=== PATIENT | female | born 1975 | race Hispanic/Latino ===

== ENCOUNTER 2020-12-04 17:15 | Emergency (ER) | payer SELFPAY ==
[2020-12-04 17:19] VITALS: BP 108/55; PULSE 69; RESP 22; TEMP 36.4; O2SAT 99
[2020-12-04 17:43] LABS: COVID19 -Nasal RAPID Negative (Negative)
--- NOTE | 2020-12-04 19:45 | ED_ITS ---
HPI - Nausea/Vomiting/Diarrhea General Chief complaint: Nausea/Vomiting/Diarrhea Stated complaint: Stomach Issues Time Seen by Provider: 12/04/20 18:09 Source: patient Mode of arrival: Ambulatory Limitations: language barrier History of Present Illness HPI Narrative: Patient is a 44-year-old female. She is Georgian-speaking however states that she understands [place]. I offered to use the translation line but she declined. She states that she has generalized abdominal pain and diarrhea for the past 24 hours. Has also had subjective fevers. She returned home from a trip to [place] yesterday. States that she started to have symptoms a couple days ago but thought that they went away but then returned. Has not tried anything for symptoms Related Data Previous Rx's Medication Instructions Recorded ciprofloxacin HCl 500 mg PO BID 3 Days #6 tab 12/04/20 Allergies Allergy/AdvReac Type Severity Reaction Status Date / Time No Known Allergies Allergy Uncoded 03/05/18 11:56 Review of Systems Constitutional Constitutional: Reports fever(s) (Subjective fevers) Cardiovascular Cardiovascular: Denies chest pain and Denies dyspnea Respiratory Respiratory: Denies dyspnea Gastrointestinal Gastrointestinal: Reports abdominal pain, Reports diarrhea and Reports nausea Genitourinary Genitourinary: Denies dysuria Genitourinary: Denies dysuria Musculoskeletal Musculoskeletal: Reports myalgias Integumentary/Breasts Skin/Breast: Denies rash Neurologic Neurologic: Denies behavioral changes Psychiatric Psychiatric: Denies behavioral changes Hematologic/Lymphatic On Anticoagulants: No Allergic/Immunologic Allergic/Immunologic: Denies urticaria Patient History Medical History UTI (urinary tract infection) Social History Smoking Status: Never smoker Smoking Status: Never smoker Exam Initial Vital Signs Initial Vital Signs: Vital Signs Temperature 97.5 F L 12/04/20 17:19 Pulse Rate 69 12/04/20 17:19 Respiratory Rate 22 12/04/20 17:19 Blood Pressure 108/55 L 12/04/20 17:19 Pulse Oximetry 99 12/04/20 17:19 Const General: cooperative and comfortable Limitations: mental status not altered HENMT Head: normal to inspection and normocephalic Resp Effort & Inspection: normal respiratory effort Cardio Rate: regular rate GI Inspection: non-distended Palpation: soft and tender (Generalized) Skin Lesions: no lesions Rashes: no rashes Neuro General: patient alert and patient awake Cognition: normal cognition Speech: speech normal Extrem General: capillary refill normal Psych Appearance: grossly normal and well kempt Course Orders Ordered: ED Orders 12/04/20 17:22 COVID19 Stat Vital Signs Vital signs: Vital Signs - 8 hr 12/04/20 19:52 Pulse Rate 66 Respiratory Rate 16 Blood Pressure 101/56 L Pulse Oximetry 100 MDM - Nausea/Vomiting/Diarrhea Lab Data Attestation: I reviewed the patient's lab results. Labs: Lab Results 12/04/20 Range/Units 17:22 SARS-CoV-2 (PCR) Negative (Negative) MDM Narrative Medical decision making narrative: Patient's COVID was negative. She does have generalized abdominal tenderness however is fairly benign exam. Patient unable to provide a stool sample for us here in the ER. Given her recent travel to [place] in her symptoms feel treating with antibiotics for presumed traveler's diarrhea is warranted in her case. She did expressed understanding and agreement and understood return precautions. I feel we can hold on a CT scan for now based on her she expressed understanding and agreement. Discharge Plan Departure Patient Disposition: Home Clinical Impression: Diarrhea, Abdominal pain Instructions: DI for Diarrhea and Traveler's Diarrhea -- Adult Activity Restrictions/Additional Instructions: Recommend that you take the antibiotics as directed. Be sure to increase your fluid intake. Return to the emergency department for any new or worsening symptoms Prescriptions: New ciprofloxacin HCl 500 mg tablet 500 mg PO BID 3 Days Qty: 6 RF: 0
[2020-12-04 19:52] VITALS: BP 101/56; PULSE 66; RESP 16; O2SAT 100
== END 2020-12-04 19:53 | disposition home or self-care (01) ==
PROVIDERS: Emergency Medicine; Emergency Provider Emergency Medicine
DX: R10.84 Generalized abdominal pain (principal); R19.7 Diarrhea, unspecified; R50.9 Fever, unspecified; Z20.822 Contact with and (suspected) exposure to COVID-19
CPT/HCPCS: 87635; 99281; 99282; C9803

== ENCOUNTER → 2021-07-04 10:42 | Outpatient (CLI) | payer SELFPAY | PROVIDERS: Visit Provider Nurse Practitioner | DX: N39.0 Urinary tract infection, site not specified (principal) | CPT/HCPCS: 87086 ==

== ENCOUNTER 2022-03-07 16:59 | Emergency (ER) | payer BC, SELFPAY ==
[2022-03-07 17:08] VITALS: BP 109/55; PULSE 74; RESP 16; TEMP 36.6; O2SAT 100
--- NOTE | 2022-03-07 18:19 | ED_ITS ---
HPI - Extremity Injury (Lower) <JAMEE De Jesus - Last Filed: 03/07/22 18:28> General Chief Complaint: Extremity Injury, Lower Stated Complaint: left leg pain Time Seen by Provider: 03/07/22 17:51 Source: patient Mode of arrival: Ambulatory History of Present Illness HPI Narrative: This is a 44-year-old female who presents to the emergency department complaining of left upper thigh pain which has been present for approximately 1 week, associated with muscle spasms, feels ?tight, and tender to palpation ?. 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 She denies any pain in her knee, her back, her hips, or any muscle weakness. She denies any sensation changes including numbness and tingling into her extremities. She denies any chest pain, shortness of breath, abdominal pain, trauma, or sensation changes. Patient states that she has been taking ibuprofen every 8 hours but it is not been and a half. Patient denies known injury. Related Data Previous Rx's Medication Instructions Recorded diclofenac sodium 1 % topical gel 2 g TOPICAL QID PRN #100 g 03/07/22 (Voltaren Arthritis Pain) lidocaine 5 % topical patch 1 patch TOPICAL DAILY #15 ea 03/07/22 methocarbamol 500 mg tablet 500 mg PO TID PRN #20 tab 03/07/22 Allergies Allergy/AdvReac Type Severity Reaction Status Date / Time No Known Allergies Allergy Uncoded 07/04/21 10:20 Review of Systems <JAMEE De Jesus - Last Filed: 03/07/22 18:28> Review of Systems Narrative: General: denies fever, chills, malaise, sweats, fatigue Head/Neck: denies headache, neck pain, dizziness Eyes: denies visual changes, eye pain Cardio: denies chest pain, palpitations, edema Respiratory: denies dyspnea, cough, orthopnea GI: denies abdominal pain, nausea, vomiting, or diarrhea : denies dysuria, hematuria, urinary retention, frequency or incontinence MSK: denies joint pain, muscle weakness, endorses left groin tenderness, pain with hip flexion, pain increased with sitting to standing. Skin: denies rash, itching, skin lesions or other Neuro: denies numbness, tingling Patient History <JAMEE De Jesus - Last Filed: 03/07/22 18:28> Medical History UTI (urinary tract infection) Social History Smoking Status: Never smoker Smoking Status: Never smoker Exam <JAMEE De Jesus - Last Filed: 03/07/22 18:28> Narrative Exam Narrative: Independently reviewed vitals signs and nursing notes. General: cooperative, comfortable, in no acute distress, well developed and well groomed Head: atraumatic, symmetrical facial expressions Neck: supple, atraumatic, without lymphadenopathy. Eyes: pupils equal round and reactive, EOMI, conjunctiva normal Nose: nares patent, no rhinorrhea Mouth/Throat: uvula midline, moist mucus membranes Cardiovascular: regular rate and rhythm, no peripheral edema, warm extremities Respiratory: normal effort, able to speak in complete sentences, no audible wheezing, stridor, or rales. No retractions or tachypnea. GI: abdomen soft, nontender to palpation, nondistended, no masses, no exquisite tenderness with exam, without guarding or rebound. MSK: moves all extremities, ambulatory w/steady gait, neurovascularly intact, no weakness, left thigh with palpable tenderness, and muscle tension in the left groin/hamstring region. No surrounding erythema, ecchymosis, open wound. Patient able to flex her knee approximately 30% and pain is limited the rest of the range of motion. no dependent edema, denies any knee pain, or foot pain. Skin: brisk capillary refill, no rash, no erythema Neuro: normal speech and cognition, A&O x3, normal tone Psych: mental status is grossly normal, congruent mood, normal affect, pleasant and cooperative Initial Vital Signs Initial Vital Signs: Vital Signs Temperature 97.8 F 03/07/22 17:08 Pulse Rate 74 03/07/22 17:08 Respiratory Rate 16 03/07/22 17:08 Blood Pressure 109/55 L 03/07/22 17:08 Pulse Oximetry 100 03/07/22 17:08 <Linda Cruz DO - Last Filed: 03/08/22 09:07> Initial Vital Signs Initial Vital Signs: Vital Signs Temperature 97.8 F 03/07/22 17:08 Pulse Rate 74 03/07/22 17:08 Respiratory Rate 16 03/07/22 17:08 Blood Pressure 109/55 L 03/07/22 17:08 Pulse Oximetry 100 03/07/22 17:08 Course <JAMEE De Jesus - Last Filed: 03/07/22 18:28> Orders Ordered: Discontinued Medications Acetaminophen (Acetaminophen 325 Mg Tablet) 650 mg PO NOW ONE Stop: 03/07/22 18:14 Last Admin: 03/07/22 18:24 Dose: 650 mg Documented by: BTONER Ibuprofen (Ibuprofen 400 Mg Tablet) 600 mg PO NOW ONE Stop: 03/07/22 18:14 Last Admin: 03/07/22 18:23 Dose: 600 mg Documented by: BTONER Lidocaine (Lidocaine Patch 1 Each Adh..Patch) 1 each TOP NOW ONE Stop: 03/07/22 18:14 Last Admin: 03/07/22 18:24 Dose: 1 each Documented by: BTONER Vital Signs Vital signs: Vital Signs - 8 hr 03/07/22 17:08 Temperature 97.8 F Pulse Rate 74 Respiratory Rate 16 Blood Pressure 109/55 L Pulse Oximetry 100 <Linda rCuz DO - Last Filed: 03/08/22 09:07> Orders Ordered: Discontinued Medications Acetaminophen (Acetaminophen 325 Mg Tablet) 650 mg PO NOW ONE Stop: 03/07/22 18:14 Last Admin: 03/07/22 18:24 Dose: 650 mg Documented by: BTONER Ibuprofen (Ibuprofen 400 Mg Tablet) 600 mg PO NOW ONE Stop: 03/07/22 18:14 Last Admin: 03/07/22 18:23 Dose: 600 mg Documented by: BTONER Lidocaine (Lidocaine Patch 1 Each Adh..Patch) 1 each TOP NOW ONE Stop: 03/07/22 18:14 Last Admin: 03/07/22 18:24 Dose: 1 each Documented by: BTONER Vital Signs Vital signs: Vital Signs - 8 hr 03/07/22 17:08 Temperature 97.8 F Pulse Rate 74 Respiratory Rate 16 Blood Pressure 109/55 L Pulse Oximetry 100 MDM - Extremity Injury (Lower) <JAMEE De Jesus - Last Filed: 03/07/22 18:28> MDM Narrative Medical decision making narrative: This is a 46-year-old female presents to the emergency department with 1 week of left groin/inner thigh pain without known injury. On exam patient has palpable muscle tension over her hamstring and groin, tenderness to palpation, no surrounding erythema, fluctuance, wound. Patient's range of motion is intact, flexion is limited slightly due to pain. Patient was driving today, she was given Tylenol and ibuprofen in the emergency department with a lidocaine patch. This is most likely a muscle strain or hamstring injury. Recommend physical therapy referral by primary care. Patient was recommended to follow-up with her primary care provider, continue taking ibuprofen every 6-8 hours as needed, topical lidocaine patches, ibuprofen, methocarbamol, and diclofenac as needed for her symptoms. Patient is appropriate and amenable to discharge home. Vital signs are stable on repeat examination is unremarkable. Patient has been informed of results. Patient has been given strict return to ER precautions for any new or worsening symptoms. Patient understands to follow up closely with outpatient providers as instructed. Patient understands plan and agrees to discharge home. All questions and concerns answered at this time. Discharge Plan Departure Patient Disposition: Home Clinical Impression: Muscle strain Hamstring injury Qualifiers: Encounter type: initial encounter Laterality: left Qualified Code(s): S76.302A - Unspecified injury of muscle, fascia and tendon of the posterior muscle group at thigh level, left thigh, initial encounter Instructions: Groin Strain, DI for Muscle Strain Activity Restrictions/Additional Instructions: *You have been diagnosed with this is likely a muscle strain, or hamstring tear/injury. Please use topical Voltaren, lidocaine patches, heat, ibuprofen, and muscle relaxers as necessary until this heals. Please go to your primary care provider and ask for a referral to physical therapy. They would be perfect for this type of injury for you. Thank you for coming to the emergency department, because of your tenderness and the feeling of muscle pain there, would like you to follow-up with your primary care provider to help this get better soon. *What to do: *Please continue to take your regular medications as directed. [ x] New medication prescriptions sent to your pharmacy: [ [facility]] [ ] New medication written as a paper prescription [ ] No new medications given *Please follow up with your primary care provider in 2-3 days, call for an appointment. Let them know you were seen in the Emergency Department and that we asked that you be seen for follow-up. We will electronically transmit a record of today's note if your PCP is in our system *If you do not have a primary care provider please contact [phone] to establish care with one of the [facility] primary care providers. *Return to Emergency Department if you should have any new, worsening or concerning symptoms, such as [fever greater than 101F, chills, worsening pain, persistent vomiting or other bothersome symptoms] Prescriptions: New methocarbamol 500 mg tablet 500 mg PO TID PRN (Reason: muscle spasm) Qty: 20 0RF diclofenac sodium [Voltaren Arthritis Pain] 1 % gel 2 g topical QID PRN (Reason: pain) Qty: 100 0RF Rx Instructions: apply to single elbow, wrist or hand; for hand includes palm/fingers/back of hand lidocaine 5 % adhesive patch,medicated 1 patch topical DAILY Qty: 15 0RF Rx Instructions: leave on most painful area for up to 12 hrs Referrals: Amber Aguayo MD [Non-Staff] - <Linda Cruz DO - Last Filed: 03/08/22 09:07> Cosign ED Attending Cosignature Attestation: I was immediately available in the department for consultation. Documentation has been reviewed. I agree with assessment and plan.
[2022-03-07] MEDS: IBUPROFEN 400 MG TABLET 600 MG PO (18:23)
[2022-03-07] MEDS: LIDOCAINE PATCH 1 EACH ADH..PATCH TOP (18:24)
[2022-03-07] MEDS: ACETAMINOPHEN 325 MG TABLET 650 MG PO (18:24)
[2022-03-07 18:56] VITALS: BP 100/52; PULSE 61; RESP 16; O2SAT 100
== END 2022-03-07 18:56 | disposition home or self-care (01) ==
PROVIDERS: Emergency Provider Nurse Practitioner Critical Care Medicine
DX: S79.922A Unspecified injury of left thigh, initial encounter (principal); S76.912A Strain of unspecified muscles, fascia and tendons at thigh level, left thigh, initial encounter; X58.XXXA Exposure to other specified factors, initial encounter
CPT/HCPCS: 99283

== ENCOUNTER → 2024-08-28 09:50 | Outpatient (CLI) | payer BC, SELFPAY | PROVIDERS: Visit Provider Nurse Practitioner Family | DX: R30.0 Dysuria (principal); N94.9 Unspecified condition associated with female genital organs and menstrual cycle | CPT/HCPCS: 87086; 87210 ==

== ENCOUNTER → 2024-09-02 10:15 | Outpatient (CLI) | payer BC, SELFPAY | PROVIDERS: Visit Provider Physician Assistant | DX: R30.0 Dysuria (principal) | CPT/HCPCS: 87086 ==

== ENCOUNTER → 2025-04-23 10:13 | Outpatient (CLI) | payer BC, SELFPAY | PROVIDERS: Visit Provider Nurse Practitioner Family | DX: R30.0 Dysuria (principal) | CPT/HCPCS: 87077; 87086; 87186 ==

== ENCOUNTER → 2025-04-23 11:00 | Outpatient (CLI) | payer BC, SELFPAY ==
[2025-04-23 12:53] LABS: Hepatitis B Surface Antigen NEGATIVE s/c (NEGATIVE)
[2025-04-23 13:14] LABS: HIV 1 & 2 Ab/Ag 4th Gen Combo NEGATIVE (NEGATIVE); Hep C Virus Ab w/Reflex Quant NEGATIVE s/c (NEGATIVE)
[2025-04-23 14:16] LABS: Urine N gonorrhoeae NOT DETECTED
[2025-04-23 14:17] LABS: Urine Chlamydia NOT DETECTED
[2025-04-24 06:11] LABS: RPR Screen Non Reactive (Non Reactive)
== END ==
PROVIDERS: Referring Provider Nurse Practitioner Family; Visit Provider Nurse Practitioner Family
DX: Z11.3 Encounter for screening for infections with a predominantly sexual mode of transmission (principal); R30.0 Dysuria
CPT/HCPCS: 36415; 86592; 86803; 87077; 87086; 87186; 87340; 87389; 87491; 87591